=== PATIENT | female | born 1950 | race Caucasian/White ===

== ENCOUNTER 2025-05-29 07:30 | Day surgery (SDC) | payer MEDICARE, OTHER ==
[~2025-05-29] VITALS: Ht 165.1 cm; Wt 96.0 kg
[~2025-05-29 07:30] MED LIST: CEFAZOLIN SODIUM 2 GM in SODIUM CHLORIDE 0.9% 100 ML IV SCH; HEParin SOD (PORCINE) 5,000 UNIT/ML SDV SUB-Q SCH; IBLOOD GLUCOSE TEST STRIP 1 EA TEST VI PRN; LACTATED RINGER'S 1,000 ML IV SCH; LEVOTHYROXINE50 MC1 PO; LIDOCAINE HCL 1% 5 ML SDV INJ ONE
[2025-05-29 07:49] VITALS: BP 153/80
[2025-05-29] MEDS ORDERED: SODIUM CHLORIDE 0.9% 40 ML IV ONE (09:10)
[2025-05-29] MEDS ORDERED: fentaNYL citrate 100 MCG/2 ML VIAL ONE (09:33)
[2025-05-29] MEDS ORDERED: KETAMINE in NS 50 MG/5 ML SYR ONE (09:33)
[2025-05-29] MEDS ORDERED: LIDOCAINE HCL 2% 5 ML SDV ONE (09:34)
[2025-05-29] MEDS ORDERED: DEXAMETHASONE SOD PHOS 4 MG/ML VIAL ONE (09:34)
[2025-05-29] MEDS ORDERED: ROCURONIUM BROMIDE 50 MG/5 ML SYR ONE (09:34)
[2025-05-29] MEDS ORDERED: MAGNESIUM SULFATE 1 GM/2 ML VIAL ONE (09:34)
[2025-05-29] MEDS ORDERED: ACETAMINOPHEN 1,000 MG/100 ML VIAL ONE (09:34)
[2025-05-29] MEDS ORDERED: PHENYLEPHRINE HCL IN 0.9% NACL 1 MG/10 ML SYR ONE (10:16)
[2025-05-29] MEDS ORDERED: SUGAMMADEX SODIUM 200 MG/2 ML ML ONE (10:36)
[2025-05-29] MEDS ORDERED: HYDROmorphone HCL 1 MG/ML SYR IV PRN (10:45)
[2025-05-29] MEDS ORDERED: NALOXONE HCL 0.4 MG SYR IV PRN ×2 (10:45→11:15)
[2025-05-29] MEDS ORDERED: fentaNYL citrate 50 MCG/ML SDV IV PRN (10:45)
[2025-05-29] MEDS ORDERED: IBLOOD GLUCOSE TEST STRIP 1 EA TEST VI PRN (10:45)
--- NOTE | 2025-05-29 11:04 | NUR ---
05/29/25 1104 Kyra Barnard 1100: PT ARRIVES TO PACU REACTIVE. REPORT RECEIVED FROM MICRO COMPUTER SPECIALIST AND PROCESSING OPERATOR.
[2025-05-29] MEDS ORDERED: IBUPROFEN 600 MG TAB PO PRN (11:15)
[2025-05-29] MEDS ORDERED: ACETAMINOPHEN 500 MG TAB PO PRN (11:15)
[2025-05-29] MEDS ORDERED: OXYCODONE/APAP 7.5/325 TAB PO PRN (11:15)
[2025-05-29] MEDS ORDERED: TYLENOL EXTRA500 MG PO (11:20)
[2025-05-29] MEDS ORDERED: MOTRIN IB200 MG PO (11:20)
[2025-05-29] MEDS ORDERED: PERCOCET 7.5-31 EACH PO (11:21)
[2025-05-29 11:42] VITALS: BP 179/60
[2025-05-29 11:49] VITALS: BP 144/90
--- NOTE | 2025-05-29 11:56 | NUR ---
1141-PT BACK TO ROOM FROM PACU ON 2L VIA IA. RECEIVED REPORT FROM KENDRICK CARRERA. PT IS DROWSY. RESP EVEN AND UNLABORED. PT RATES PAIN 9/10. STATES A LITTLE NAUSEA. PT WOULD LIKE A PAIN PILL. PT DRINKING WATER AND EATING A CRACKER. PT REPORTS BEING HOT AND WOULD LIKE COOL AIR. ARCADIO HUGGER TURNED ON. SON AT BEDSIDE. NO OTHER NEEDS AT THIS TIME. CALL LIGHT WITHIN REACH. 1152-PAIN MEDICATION GIVEN PER EMAR.
--- NOTE | 2025-05-29 12:27 | NUR ---
PT LAYING IN BED WITH EYES CLOSED. PT RESPONDS TO VERBAL STIMULI. PT RATES PAIN 7/10 AND THIS IS TOLERABLE FOR HER. STATES "TIRED" WHEN ASKED HOW SHE FEELS. NO OTHER NEEDS AT THIS TIME. CALL LIGHT WITHIN REACH.
[2025-05-29 12:53] VITALS: BP 159/78
--- NOTE | 2025-05-29 12:56 | NUR ---
PT LAYING IN BED WITH EYES CLOSED. PT RESPONDS TO VERBAL STIMULI. RESP EVEN AND UNLABORED. RATES PAIN 6/10. STATES "A LITTLE LIGHTHEADED". PT HAS WATER AT BEDSIDE. NO OTHER NEEDS AT THIS TIME. SON AT BEDSIDE. CALL LIGHT WITHIN REACH.
[2025-05-29 14:15] VITALS: BP 165/71
[2025-05-29 15:21] VITALS: BP 162/73
--- NOTE | 2025-05-29 16:04 | NUR ---
LE 1415-PT LAYING IN BED WITH EYES CLOSED. RESP EVEN AND UNLABORED. RATES PAIN 08/21. C/O NAUSEA. ARCADIO HUGGERS ON AND BLOWING COLD AIR. PT WOULD LIKE SOMETHING FOR NAUSEA. SON AT BEDSIDE. CALL LIGHT WITHIN REACH. LE 1417-INAPSINE GIVEN PER EMAR.
--- NOTE | 2025-05-29 16:16 | NUR ---
LE 1510-PT IS AWAKE. PT WOULD LIKE TO USE THE RESTROOM LE 1513-PT USES BEDSIDE COMMODE. PT VOIDS. LE 1521-PT SITTING AT BEDSIDE. RESP EVEN AND UNLABORED. PT EATING JELLO AND DRINKING WATER. GAUZE AND TAPE PLACED OVER LAP SITES. PT READY TO GO HOME. PT WILL GET DRESSED.
--- NOTE | 2025-05-29 16:19 | NUR ---
LE 1530-WENT OVER DISCHARGE INSTRUCTIONS WITH PT AND HER SON. ALL QUESTIONS ANSWERED. WENT OVER POSTOP MEDICATIONS. LE 1534-PT AMBULATES TO WHEELCHAIR AND RIDE PROVIDED TO FRONT OF HOSPITAL WHERE SON WAS WAITING WITH THE CAR.
[2025-05-29] MEDS ORDERED: SEVOFLURANE 250 ML BTL INH ONE (17:01)
--- NOTE | 2025-05-30 15:06 | OR ---
[facility] [address], [place] [address] Signed DATE OF OPERATION: 05/29/2025 SURGEON: Pallavi Esqueda MD PREOPERATIVE DIAGNOSIS: Chronic acalculous cholecystitis. POSTOPERATIVE DIAGNOSIS: Chronic acalculous cholecystitis. PROCEDURES: 1. Laparoscopic cholecystectomy with intraoperative cholangiogram. 2. Surgeon-directed fluoroscopy. ANESTHESIA: General endotracheal, Aubrey Jessica, SP[employer]CR[employer] PIPE and local 10 mL of 0.25% Marcaine with epinephrine. INDICATION: This 74-year-old white woman is a patient of Dr. Filemon Issa, [place], [place]. The patient has had a rather typical right upper quadrant pain following meals. A gallbladder ultrasound performed December 27, 2024 in emergency room showed a gallbladder that was distended, but without signs of stones or gallbladder wall thickening. A subsequent CCK-HIDA test performed January 19, 2025 under the direction of Dr. Issa, confirmed decreased gallbladder ejection fraction, which was 27% at 40 minutes. She continues to have episodic biliary colic type symptoms and is considered to have acalculous cholecystitis. She is admitted at this time to undergo cholecystectomy preferred by laparoscopic approach understanding the risk of bleeding, infection, bile duct injury, need for open surgery, and of course failure to cure symptoms. Understanding that, she wished to proceed. FINDINGS: The gallbladder was indeed chronically inflamed. Once excised, there was no evidence of stone within the gallbladder, but there was chronic inflammatory change of the mucosa. Cholangiogram was normal showing narrow biliary tree. The liver itself was normal, although the gallbladder was relatively fatty covered overall. DESCRIPTION OF PROCEDURE: The patient was brought to the operating room, given a general endotracheal anesthetic. Preoperative antibiotic Ancef was given. Sequential compression device stockings used Electronically Signed By: PALLAVI ESQUEDA MD 05/30/25 1506 PATIENT NAME: KIKE DAVIS OPERATIVE REPORT DATE OF : 50 REPORT #: [id number] PHYSICIAN: PALLAVI ESQUEDA MD PCP: FILEMON ISSA DO REPORT IS CONFIDENTIAL AND NOT TO BE RELEASED WITHOUT AUTHORIZATION [facility] [address], [place] [address] Signed and heparin subcutaneously administered. The abdomen was prepared with chlorhexidine solution and draped sterilely. The previous low midline incision was noted. An infraumbilical incision was made and using an open Christos cannula technique, pneumoperitoneum achieved to a level of 14 mmHg with carbon dioxide gas. Intra-abdominal inspection showed no sign of ascites or carcinomatosis. Chronically inflamed gallbladder was noted. Three additional trocars were placed in usual configuration in the subxiphoid, right midclavicular, and right anterior axillary line. The gallbladder was grasped and elevated cephalad, showing adhesions of omentum to its undersurface. These were taken down with blunt and electrocautery dissection. Ultimately, the gallbladder was able to be elevated more superiorly. A grasper affixed to the table. The infundibulum was grasped and using blunt and electrocautery dissection, the triangle of Calot was dissected free ultimately identifying well the cystic duct and cystic arterial branch. The cystic artery was doubly clipped and divided and a clip applied to the gallbladder cystic duct junction and a transverse choledochotomy made in the cystic duct. Egress of clear bile was noted. Using an Burton type cholangiocatheter, intraoperative cholangiography was undertaken showing free flow of contrast in biliary tree with prompt emptying into the duodenum. The cystic duct was relatively long and the common hepatic duct and common duct were surprisingly narrow. The catheter was removed. The cystic duct was triply clipped and divided. The gallbladder was then dissected free in a retrograde fashion using electrocautery. A small rent was made in the gallbladder spilling a minimal amount of bile. The gallbladder was placed in an endobag and extracted through the infraumbilical port site without problem, opened on the back table, found have chronic inflammatory change of the mucosa, but no sign of stones or neoplasm. Irrigation was undertaken in subhepatic space. The raw surface of the liver was secured with electrocautery. Excess irrigation fluid was suctioned free. Removal of the trocar showed a minimal amount of bleeding at the epigastric port, which was secured with electrocautery. Ultimately, all port sites were completely dry. Attention was then turned towards closure. The midline fascia of the infraumbilical incision was reapproximated with interrupted 0 Vicryl suture. 10 mL of 0.25% Marcaine with epinephrine was injected locally. The skin closed with interrupted 3-0 Vicryl. Steri-Strips were applied. She was ultimately extubated and transferred to recovery room in good condition having suffered no complication. Sponge, needle, and instrument counts were reported as correct x3. MD LANA Obando/LEOL Electronically Signed By: PALLAVI ESQUEDA MD 05/30/25 1506 PATIENT NAME: KIKE DAVIS OPERATIVE REPORT DATE OF : 50 REPORT #: [id number] PHYSICIAN: PALLAVI ESQUEDA MD PCP: FILEMON ISSA DO REPORT IS CONFIDENTIAL AND NOT TO BE RELEASED WITHOUT AUTHORIZATION [facility] [address] [place], [place] [address] Signed /[id number] cc: DO Neal [place], [place] Copies: ~ Electronically Signed By: PALLAVI ESQUEDA MD 05/30/25 1506 PATIENT NAME: LENONATHANKIKESYLVIA GARRETT OPERATIVE REPORT DATE OF : 50 REPORT #: [id number] PHYSICIAN: PALLAVI ESQUEDA MD PCP: FILEMON ISSA DO REPORT IS CONFIDENTIAL AND NOT TO BE RELEASED WITHOUT AUTHORIZATION
--- NOTE | 2025-05-31 13:09 | PATH ---
[facility] [address] [place], [place] [address] Signed SPECIMEN(S): A GALLBLADDER SPECIMEN SOURCE: A. GALLBLADDER CLINICAL HISTORY: Chronic acalculous cholecystitis. FINAL PATHOLOGIC DIAGNOSIS: Gallbladder: - Chronic cholecystitis. - Negative for calculi. JVR MICROSCOPIC EXAMINATION: Histologic sections of all submitted blocks are examined by light microscopy. These findings, together with the gross examination, support the pathologic diagnosis. GROSS DESCRIPTION: The specimen, labeled and designated "Kayla Maxwell " and designated on the requisition "gallbladder," is received in formalin and consists of Specimen: Previously opened gallbladder. Dimensions: 8.2 x 5.7 x 0.9 cm. Serosa: Yellow-riggs and smooth. Cystic Duct: Inked, probed patent. Calculi: Not grossly identified. Mucosa: Yellow-green and velvety. Wall thickness: 0.2-0.5 cm. Lymph node: No pericystic lymph nodes are grossly identified. Additional: None. Registered Phlebotomist Part Time sections are submitted in (A1). FB (under the direct supervision of a pathologist) The Gross Description was prepared using a voice recognition system. The report was reviewed for accuracy; however, sound-alike word errors, addition and/or deletions may occur. If there is any question about this report, please contact Client Services. ADDITIONAL NOTES: Immunohistochemical and/or in situ hybridization studies if performed in this case included appropriate positive controls that reacted as expected. This PATIENT NAME: KIKE MAXWELL [facility] DATE OF : 50 REPORT #: [id number] PHYSICIAN: BROOKLYNN TORRES PCP: FILEMON ISSA DO REPORT IS CONFIDENTIAL AND NOT TO BE RELEASED WITHOUT AUTHORIZATION [facility] [address] [place] [address] [place] [address] Signed test was developed and its performance characteristics determined by [facility]. It has not been cleared or approved by the U.S. Food and Drug Administration. The FDA has determined that such clearance or approval is not necessary. This test is used for clinical purposes. It should not be regarded as investigational or for research. [facility] is certified under the Clinical Laboratory Improvement Amendments of 1988 (CLIA) as qualified to perform high complexity clinical laboratory testing. PERFORMING LABORATORY: Technical component was performed by [facility], [address] [place] [id number] (CLIA# [id number]). Professional interpretation was performed by [facility] [place] - [address] [place] [address] (CLIA#: [id number]). Diagnostician: Neil Ball MD Pathologist Electronically Signed 05/31/2025 Copies: ~ PATIENT NAME: KIKE MAXWELL PATHOLOGY DATE OF : 50 REPORT #: [id number] PHYSICIAN: [facility] PATHOLOGY PCP: FILEMON ISSA DO REPORT IS CONFIDENTIAL AND NOT TO BE RELEASED WITHOUT AUTHORIZATION
== END 2025-05-29 15:34 | disposition home or self-care (01) ==
LOC: DS 07:30
PROVIDERS: ATTEND Surgery
PROC: 0FT44ZZ Resection of Gallbladder, Percutaneous Endoscopic Approach (ICD-10-PCS; principal; 2025-05-29 09:30)
DX: K81.1 Chronic cholecystitis (principal); I10 Essential (primary) hypertension
CPT/HCPCS: 00790; 74300; 88304; J0131; J0165; J0688; J1100; J1171; J1644; J1790; J2003; J2405; J2704; J3010; J3475; J3490; Q9967